=== PATIENT | male | born 1960 | race Caucasian/White ===

== ENCOUNTER 2019-05-12 05:36 | Inpatient (IN) | payer BC, OTHER ==
--- NOTE | 2019-05-01 17:39 | HP ---
HISTORY AND PHYSICAL: DATE OF SURGERY/ADMISSION: 05/12/19 DATE OF OFFICE VISIT: 04/29/19 ATTENDING PHYSICIAN: Dr. Reno Schultz.* (DICTATED BY JEAN RODRIGUEZ) PROCEDURE: Right hip total arthroplasty. CHIEF COMPLAINT: Right hip pain. HISTORY OF PRESENT ILLNESS: Deepak is a 59-year-old male with a longstanding history of right hip pain due to end-stage severe right hip arthritis. He has failed conservative treatment options and has elected to proceed with surgery. He is scheduled to undergo a right total hip arthroplasty on 05/12/[address] Schultz. PAST MEDICAL HISTORY: High cholesterol, arthritis, anxiety. PAST SURGICAL HISTORY: Urethrotomy in 2010 and 2013, right ankle surgery in 1987. MEDICATIONS: 1. Atorvastatin calcium. 2. Effexor XR. ALLERGIES: No known drug allergies. FAMILY HISTORY: Cancer. SOCIAL HISTORY: He lives alone. 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 He denies tobacco use. He consumes 12 alcoholic beverages per week. He denies recreational drug use. REVIEW OF SYSTEMS: A complete 14-point review of systems was obtained, other than HPI was positive for sore throat, runny nose, cough, anxiety. All other systems are negative and noncontributory including he has had no prior problems with anesthesia. PHYSICAL EXAMINATION GENERAL: Well-developed, well-nourished 59-year-old male in no acute distress. Alert and oriented x3, appropriate mood and affect. HEENT: Head is normocephalic, atraumatic. NECK: Supple with no palpable lymph nodes. LUNGS: Clear to auscultation bilaterally. No wheezes, rales or rhonchi. CARDIAC: Regular rate and rhythm. S1, S2. No murmurs, rubs or gallops. ABDOMEN: Soft, nontender. Bowel sounds throughout. MUSCULOSKELETAL: He is able to walk on his toes and on his heels. His right hip flexion is 90 degrees, some discomfort with external rotation at 25 degrees , internal rotation negative 10 degrees with pain and pelvic tilting. Abduction is 50 degrees with some pain. Straight leg raise painful on the right. No pain on the left side leg raising with some discomfort on the right. Right hip nontender laterally and posteriorly. Some tenderness anteriorly. No masses or swelling appreciated. There is no swelling of the knee. Calf is nontender. Posterior tibialis pulse is 2+. Dorsalis pedis pulses are 2+. Sensation is intact to light touch distally. SKIN: Intact without rashes or lesions. STUDIES: X-rays of his right hip from October 2017 showed severe osteoarthritis of the right hip with [id number] sclerosis and cyst formation. ASSESSMENT: Severe right hip osteoarthritis. PLAN: He is scheduled to undergo right total hip arthroplasty on 05/12/[address] Schultz. He will follow up in the office 10 to 14 days postoperatively for followup and suture removal. JEAN RODRIGUEZ [id number]/[facility] #: [id number] DYAN
[~2019-05-12 05:36] MED LIST: Buffered Lidocaine 1% SYRIN* 1 ML/SYRINGE INTRADERM ONE; Ondansetron TAB* 4 MG PO ONE; Tranexamic Acid 1,000 MG in NS 0.9% 50 ML* (outpatient use) IV SCH
[2019-05-12] MEDS ORDERED: oxyCODONE/Acetamin 5/325 MG* TAB PO PRN (05:46)
[2019-05-12] MEDS ORDERED: fentaNYL* 50 MCG/ML 2 ML VIAL (100 MCG VIAL) IV PRN (05:46)
[2019-05-12] MEDS ORDERED: PROCHLORPERAZINE INJ 5 MG/ML 2 ML VIAL IV PRN (05:46)
[2019-05-12] MEDS ORDERED: Scopolamine 1.5 mg* PATCH TRANSDERM PRN (05:46)
[2019-05-12] MEDS ORDERED: DiMENhydriNATE IV* 50 MG/ML VIAL IV PUSH PRN (05:46)
[2019-05-12] MEDS ORDERED: Naloxone* 0.4 MG/ML 1 ML VIAL IV PRN (05:46)
[2019-05-12] MEDS ORDERED: Morphine 4 MG/ML VIAL (1 ml) 4 MG/ML VIAL IV PRN ×2 (05:46→10:21)
[2019-05-12] MEDS ORDERED: Acetaminophen TAB* 325 MG PO ONE (06:00)
[2019-05-12] MEDS ORDERED: Gabapentin CAP(*) 300 MG PO ONE (06:00)
[2019-05-12] MEDS ORDERED: celeCOXIB CAP* 200 MG PO ONE (06:00)
[2019-05-12] MEDS ORDERED: Dexamethasone TAB* 4 MG PO ONE (06:00)
[2019-05-12] MEDS ORDERED: Famotidine IV* 10 MG/ML 2 ML (20 mg) IV ONE (06:00)
[2019-05-12] MEDS ORDERED: Acetaminophen TAB* 325 MG ONE ×3 (06:03→13:05)
[2019-05-12] MEDS ORDERED: Ondansetron ODT TAB* 4 MG ONE (06:03)
[2019-05-12] MEDS ORDERED: Gabapentin CAP(*) 300 MG ONE (06:03)
[2019-05-12] MEDS ORDERED: Dexamethasone TAB* 4 MG ONE ×2 (06:03→06:27)
[2019-05-12] MEDS ORDERED: Famotidine IV* 10 MG/ML 2 ML (20 mg) ONE (06:04)
[2019-05-12] MEDS ORDERED: celeCOXIB CAP* 200 MG ONE (06:04)
[2019-05-12] MEDS ORDERED: Buffered Lidocaine 1% SYRIN* 1 ML/SYRINGE INTRADERM ONE (06:04)
[2019-05-12] MEDS ORDERED: ceFAZolin 2 GM in NS PREMIX(*) 2 GM/100 ML BAG IVPB ONE (06:05)
[2019-05-12] MEDS: Lactated Ringers 1000 ML Bag* 1,000 ML IV SCH ×2 (06:31→12:57)
[2019-05-12] MEDS ORDERED: Midazolam* 1 MG/ML 10 ML VIAL (10 MG) ONE (07:14)
[2019-05-12] MEDS ORDERED: KETAMINE HCL* 50 MG/ML 10 ML VIAL ONE (07:14)
[2019-05-12] MEDS ORDERED: fentaNYL* 50 MCG/ML 2 ML VIAL (100 MCG VIAL) ONE (07:14)
[2019-05-12] MEDS ORDERED: Bupivacaine 0.5% SDV PF* 30ML VIAL ONE (10:04)
[2019-05-12] MEDS ORDERED: Propofol* 10 MG/ML 20 ML BTL ONE (10:04)
[2019-05-12] MEDS ORDERED: Propofol* 500 MG/50 ML BTL ONE (10:04)
[2019-05-12] MEDS ORDERED: Magnesium Hydroxide LIQ* 30 ML UDC PO PRN (10:21)
[2019-05-12] MEDS ORDERED: diPHENhydraMINE IV* 50 MG/ML 1 ml VIAL (BENADRYL) IV PRN (10:21)
[2019-05-12] MEDS ORDERED: Cyclobenzaprine TAB* 10 MG PO PRN (10:21)
[2019-05-12] MEDS ORDERED: Docusate CAP* 100 MG PO PRN (10:21)
[2019-05-12] MEDS ORDERED: Ondansetron TAB* 4 MG PO PRN (10:21)
[2019-05-12] MEDS ORDERED: diPHENhydraMINE PO* 25 MG PO PRN (10:21)
[2019-05-12] MEDS ORDERED: Ondansetron INJ* 2 MG/ML VIAL IV PRN (10:21)
--- NOTE | 2019-05-12 11:41 | OP ---
DATE OF OPERATION: 05/12/19 - ROOM #347 DATE OF : 64 SURGEON: Reno Schultz MD URBAN ANTHROPOLOGIST: JEAN Gutierrez, personnel assistant; Whitney Rooney, surgical elastic knitter. ANESTHESIOLOGIST: Dr. Deepak Mujica. ANESTHESIA: Spinal with IV sedation. PRE-OP DIAGNOSIS: Severe arthritis of the right hip. POST-OP DIAGNOSIS: Severe arthritis of the right hip. OPERATIVE PROCEDURE: Right total hip replacement. COMPONENTS UTILIZED: Sonya component were utilized. A continuum cup with cluster holes 1 screw size 52 on the acetabular side. The liner is high density extra cross length polyethylene for a 36 head. On the femoral side, an M/L taper standard size 7.5 with a +3.5, 36 mm ceramic head. COMPLICATIONS: There were no complications. DRAINS: There were no drains. ESTIMATED BLOOD LOSS: 200 mL. REPLACEMENT: Crystalloid fluids. OPERATIVE INDICATIONS: Severe degenerative arthritis of the right hip. The patient has had severe arthritis for several years, it has been nonresponsive to nonoperative care at this point and the hip replacement is recommended. DESCRIPTION OF PROCEDURE: The patient was brought to the operating room and placed on the operating room table in a supine position and into a seated position for administration of the anesthetic spinal, then returned to the supine position. A Fletcher catheter was inserted without difficulty. The patient was placed in the left lateral position down side left leg and no pressure on the peroneal nerve at the fibular head and neck. Blankets were placed between the legs. The pelvis was secured over the ASIS and the sacrum with the hip positioner and a folded blanket was placed under the left trochanter to bring the right hip closer to the saline. The right hip, right lower extremity were then given a preliminary chlorhexidine prep and a final ChloraPrep prep for the surgical care. After prepping, draping, and sealing off , we did our universal protocol time-out confirming Deepak Morrison and the plan for right total hip replacement. We all agreed and we proceeded. The skin incision was approximately 4 inches in length, going from the greater trochanter distally for an inch and curving proximally and posteriorly for 3 inches. The skin and subcu divided, careful hemostasis was checked and achieved throughout the case utilizing electrocautery. At the level of the deep fascia, we went through the iliotibial band exposing the greater trochanter in the posterior border of the abductor musculature. A Charnley retractor was carefully inserted. The soft tissues were swept posteriorly on the posterior side of the trochanter. The gluteus medius was retracted anteriorly with a blunt Hohmann retractor exposing the piriformis. The piriformis and conjoined tendons were released from the piriformis fossa insertions and each was marked with a separate #2 Surgidac suture. This stitch also included the underlying capsular flap. The hip had abundant clear straw colored synovial fluid. The gluteus medius was also retracted anteriorly and then we finished our posterior approach to the hip. The hip was dislocated without difficulty. The femoral neck was cut approximately a fingerbreadth proximal to the lesser trochanter. The head and neck removed. The head was again completely eburnated on the weightbearing surface. On the acetabular side , we removed the labrum posteriorly, superiorly, anteriorly. Retractors were inserted, sharp Hohmann anteriorly and posteriorly, blunt Hohmann superiorly and inferiorly and removed a large medial osteophyte, posterior inferior osteophyte and all the soft tissues on the acetabular fossa. The reaming was then done 44 through 52, and at 52, we had nice bleeding subchondral and cancellous bone. He had a large cyst approaching 2 cm in diameter anteriorly. This was completely curetted and we filled it with bone graft from the femoral neck. The acetabulum was cleaned several times with saline and 52 Continuum cup was impacted into position and 45 degrees of abduction and 20 degrees of anteversion with nice tight fit. A screw was placed superiorly and a liner was placed with posterior elevation for a 36 head. The acetabulum was then packed with a sponge and on the femoral side, we used the canal finder and a trochanteric reamer, broaching was done 4 through 7.5 and 7.5 was chosen after a trial reduction and M/L Taper standard 7.5 stem was impacted into position in 15 to 20 degrees of anteversion. The trial reduction was then done with a +0 head and this had slight push-pull, so a +3.5 ceramic 36 mm head was opened and utilized and placed on a cleaned trunnion. The hip had negative push-pull, no tendency towards dislocation with IR, ER, and extension. Flexion of 90 degrees allowed IR and adduction 30-40 degrees prior to dislocation. We did careful check of hemostasis as we began to close. Irrigation was done with saline including swabbing the soft tissues with clean lap sponges. The piriformis and conjoined tendon were reapproximated to the posterosuperior greater trochanter utilizing two drill holes and a #2 Surgidac sutures. The iliotibial band was closed with the interrupted #1 Vicryl sutures in [id number] fashion. The same with the fascia on the gluteus ana. The deep and superficial subcu was closed with 0-Vicryl and then 2-0 Vicryl on the superficial subcu and jose on the skin. We irrigated several times during the closure with saline. I did not think drains were necessary. Tranexamic acid was given at the start of the case. After the jose were in, the wound was washed and dried and then dressed with Betadine- soaked Release, sterile gauze, ABD pads and paper tape. The patient was carefully returned to the supine position onto the hospital bed and into the recovery room in stable and satisfactory condition , having tolerated the procedure very well. [id number]/[facility] #: [id number] DYAN
[2019-05-12] MEDS: traMADol TAB* 50 MG PO SCH ×3 (12:57→22:48)
[2019-05-12] MEDS: Acetaminophen TAB* 325 MG PO SCH ×2 (13:06→20:48)
[2019-05-12] MEDS: oxyCODONE TAB* 5 MG TAB PO PRN ×2 (16:54→22:51)
[2019-05-12] MEDS: ceFAZolin 1 GM ADVAN(*) 1 GM in NS 0.9% 50 ML* 50 ML IVPB SCH (16:54)
[2019-05-12] MEDS: Aspirin TAB* 325 MG PO SCH (16:54)
[2019-05-13] MEDS: Lactated Ringers 1000 ML Bag* 1,000 ML IV SCH ×2 (00:01→00:03)
[2019-05-13] MEDS: ceFAZolin 1 GM ADVAN(*) 1 GM in NS 0.9% 50 ML* 50 ML IVPB SCH ×2 (00:37→07:55)
[2019-05-13] MEDS: Acetaminophen TAB* 325 MG PO SCH ×2 (03:13→10:55)
[2019-05-13] MEDS: oxyCODONE TAB* 5 MG TAB PO PRN ×4 (03:14→16:25)
[2019-05-13] MEDS: traMADol TAB* 50 MG PO SCH ×3 (05:30→17:38)
[2019-05-13 06:59] LABS: Hematocrit 32 % (42-52); Hemoglobin 11.2 g/dL (14.0-18.0); Platelet Count 154 10^3/uL (150-450)
[2019-05-13 07:14] LABS: BUN/Creatinine Ratio 14.9 (8-20); Calcium 8.5 mg/dL (8.6-10.3); EGFR African American 109.4 (>60); EGFR Non-African American 90.4 (>60); Potassium 3.7 mmol/L (3.5-5.0)
[2019-05-13] MEDS: Aspirin TAB* 325 MG PO SCH (07:55)
[2019-05-13] MEDS ORDERED: PTO:Rosuvastatin (NF) 20 MG TAB PO SCH ×2 (09:57→18:00)
[2019-05-13] MEDS: Venlafaxine EXT RELEASE CAP* 75 MG PO SCH ×2 (10:53→17:37)
--- NOTE | 2019-05-13 11:04 | PN ---
Progress Note - Progress Note Date of Service: 05/13/19 Note: POD #1 VSStable. Hct 32%. X-ray Good right hip. Awake, alert, cooperative and breathing easily. The right hip dressing is dry. He is able to do a heel slide, rotate the right hip internally (a little) and externally and extend it. I 5659ml, Out 7900ml. Impression: Stable. Acute blood loss anemia. Plans: Up with walker and THR rehab protocol.
--- NOTE | 2019-05-13 15:23 | DS ---
<Ryanne Schreiber M - Last Filed: 05/13/19 15:19> Orthopedic Discharge Summary - Discharge Summary Date of Admission:05/12/19 Date of Discharge: 05/13/19 Date of Surgery: 05/12/19 Attending Orthopedic Provider: Dr Schultz Pre-operative Diagnosis: right hip osteoarthritis Operative Procedure: right total hip arthroplasty Disposition of Patient: home Condition of Patient: stable History: MAMADOU THORPE is a 59 year old M with years of increasingly severe right hip pain. Patient has failed conservative management and has elected to undergo a right total hip replacement Hospital Course: MAMADOU was admitted to [facility] on 05/12/19. Patient underwent a right total hip replacement without complication followed by a brief recovery in PACU and transfer to the Short Stay Surgical Unit in stable condition. Our physical therapy and occupational therapy service also participated in this patients care. Post-op day 1: patient was alert and in no acute distress. Dressing was changed and incision was clean, dry and intact. Operative extremity dorsiflexion and plantarflexion intact, sensation intact to light touch distally, DP2+. Patient was deemed to be medically and orthopedically stable for discharge. Physical therapy goals were met. Home Medications Medication Instructions Recorded Confirmed Type Ibuprofen TAB* [Motrin TAB* 800 MG] 800 mg PO Q6H PRN 05/04/19 05/12/19 History Rosuvastatin Calcium [Crestor] 20 mg PO QPM 05/04/19 05/12/19 History Venlafaxine CAP (NF) [Effexor CAP 150 mg PO QPM 05/04/19 05/12/19 History (NF)] Acetaminophen TAB* [Tylenol TAB*] 975 mg PO Q8H tab 05/13/19 Rx Aspirin TAB* [Aspirin 325 MG TAB*] 325 mg PO DAILY #30 tab 05/13/19 Rx Docusate CAP* [Colace Cap*] 100 mg PO BID PRN #90 cap 05/13/19 Rx traMADol TAB* [Ultram*] 50 mg PO Q6H PRN #56 tab MDD 8 05/13/19 Rx Discharge Instructions following Orthopedic Surgery: Activity: * Weight Bearing as tolerated * Continue physical therapy and occupational therapy exercises as shown * outpatient physical therapy Hip replacements: Continue Hip Precautions- do not cross legs or bend greater than 90 degrees/squat Wound care: * OK to shower on post-op day 3, no bathing, swimming, or submerging wound. * Use gentle soap, pat dry. Cover with gauze, COLLINS wrap or tape. Call Orthopedic office for: * Increased drainage * Redness * Increased pain * Fever Go to ER with shortness of breath or chest pain. Diet: * Regular diet * Increase fluids and fiber to prevent constipation. * Continue to use stool softeners, call office if no bowel motion within 48 hours. Medications See Home Medication List in your packet for medications that you should take after discharge. DVT Prophylaxis: Aspirin Dosin mg once a day for 30 days post op Pain Control: Tramadol 50 mg 1-2 tabs every 6 hours as needed for pain, max 8 per day. hold for sedation Antibiotics are required prior to any dental work. FOLLOW UP: Follow up with [Antoine] Within 4 weeks, call for appointment Please call our office with any questions or concerns ([phone]) RX to [facility] [place] <Reno Schultz - Last Filed: 05/14/19 07:54> Orthopedic Discharge Summary - Discharge Summary Date of Admission:05/12/19 Date of Discharge: [] Date of Surgery: [] Attending Orthopedic Provider: [] Pre-operative Diagnosis: [] Operative Procedure: [] Disposition of Patient: [] Condition of Patient: [] History: MAMADOU THORPE is a 59 year old M with years of increasingly severe [] pain. Patient has failed conservative management and has elected to undergo a [ ] total [] replacement Hospital Course: MAMADOU was admitted to [facility] on 05/12/19. Patient underwent a [] without complication followed by a brief recovery in PACU and transfer to the Short Stay Surgical Unit in stable condition. Our hospitalist service, physical therapy and occupational therapy also participated in this patients care. Post-op day 1: patient was alert and in no acute distress. Dressing was clean, dry and intact. Operative extremity dorsiflexion and plantarflexion intact, sensation intact to light touch distally , DP2+. Post-op day two: dressing was changed, incision was clean, dry and intact. Patient was deemed to be medically and orthopedically stable for discharge. Physical therapy goals were met. Home Medications Medication Instructions Recorded Confirmed Type Ibuprofen TAB* [Motrin TAB* 800 MG] 800 mg PO Q6H PRN 05/04/19 05/12/19 History Rosuvastatin Calcium [Crestor] 20 mg PO QPM 05/04/19 05/12/19 History Venlafaxine CAP (NF) [Effexor CAP 150 mg PO QPM 05/04/19 05/12/19 History (NF)] Acetaminophen TAB* [Tylenol TAB*] 975 mg PO Q8H tab 05/13/19 Rx Aspirin TAB* [Aspirin 325 MG TAB*] 325 mg PO DAILY #30 tab 05/13/19 Rx Docusate CAP* [Colace Cap*] 100 mg PO BID PRN #90 cap 05/13/19 Rx traMADol TAB* [Ultram*] 50 mg PO Q6H PRN #56 tab MDD 8 05/13/19 Rx
[2019-05-13 15:42] VITALS: BP 107/60
[2019-05-13] MEDS ORDERED: Atorvastatin* 40 MG TAB PO SCH (18:00)
[2019-05-13] MEDS ORDERED: Venlafaxine EXT RELEASE CAP* 75 MG PO SCH (18:00)
[2019-05-15] MEDS ORDERED: Scopolamine PATCH Remove* 1 NOTE MISC PATCH OFF ONE (05:48)
== END 2019-05-13 18:50 | disposition home or self-care (01) | DRG 301 ==
LOC: AA 05:36 → SSU 12:29
PROVIDERS: ADMIT Orthopaedic Surgery; ATTEND Orthopaedic Surgery
PROC: 0SR904A Replacement of Right Hip Joint with Ceramic on Polyethylene Synthetic Substitute, Uncemented, Open Approach (ICD-10-PCS; principal; 2019-05-12 07:30)
DX: M16.11 Unilateral primary osteoarthritis, right hip (principal); D62 Acute posthemorrhagic anemia; M25.751 Osteophyte, right hip; F41.9 Anxiety disorder, unspecified; F32.9 Major depressive disorder, single episode, unspecified; E78.5 Hyperlipidemia, unspecified; E78.00 Pure hypercholesterolemia, unspecified; Z72.89 Other problems related to lifestyle; Z80.9 Family history of malignant neoplasm, unspecified
CPT/HCPCS: 36415; 72170; 80048; 85014; 85018; 85049; A9270-GY; C1713; C1776; J0690; J2250; J2704; J3010; J3490; J8540